=== PATIENT | male | born 1940 | race Hispanic/Latino ===

== ENCOUNTER 2018-05-24 07:45 | Emergency (ER) | payer MEDICARE ==
--- NOTE | 2018-05-24 08:09 | ED PDOC ---
Arrival/HPI - General Chief Complaint: Abdominal Pain Time Seen by Provider: 05/24/18 07:46 Historian: Patient - History of Present Illness Narrative History of Present Illness (Text): 05/24/18 08:08 77 year old male, with past medical history of CVA (7 years ago) and a questionable aneurysm, presents to the emergency department with complaints of intermittent abdominal pain since waking up yesterday morning. Patient reports a non-radiating epigastric discomfort described as heaviness. Patient reports associated mild diarrhea which stopped yesterday. Patient denies any urinary symptoms, fevers, chills, headache, dizziness, chest pain, shortness of breath, dyspnea on exertion, cough, nausea, vomiting, back pain, neck pain, or any other complaints. PMD: Dr. Domingo Time/Duration: 24 hours Symptom Onset: Gradual Symptom Course: Unchanged Activities at Onset: Light Context: Home Past Medical History - Provider Review Nursing Documentation Reviewed: Yes - Cardiac Hx Cardiac Disorders: Yes Hx Hypertension: Yes - Neurological Hx Neurological Disorder: Yes HX Cerebrovascular Accident: Yes - HEENT Hx HEENT Disorder: No - Renal Hx Renal Disorder: No - Endocrine/Metabolic Hx Endocrine Disorders: No - Hematological/Oncological Hx Blood Disorders: No - Integumentary Hx Dermatological Disorder: No - Musculoskeletal/Rheumatological Hx Musculoskeletal Disorders: No - Gastrointestinal Hx Gastrointestinal Disorders: No - Genitourinary/Gynecological Hx Genitourinary Disorders: No - Psychiatric Hx Psychophysiologic Disorder: No Hx Substance Use: No - Anesthesia Hx Anesthesia: No Family/Social History - Physician Review Nursing Documentation Reviewed: Yes Family/Social History: Unknown Family HX Smoking Status: Never Smoked Hx Alcohol Use: No Hx Substance Use: No Allergies/Home Meds Allergies/Adverse Reactions: Allergies No Known Allergies Allergy (Verified 05/24/18 11:06) Home Medications: Home Meds Medication Instructions Recorded Confirmed Enalapril/Hydrochlorothiazide 1 tab PO DAILY 05/24/18 05/24/18 [Enalapril-Hctz 10-25 mg Tablet] Simvastatin [Zocor] 1 tab PO DAILY 05/24/18 05/24/18 Tamsulosin [Flomax] 1 tab PO DAILY 05/24/18 05/24/18 amLODIPine [Norvasc] 1 tab PO DAILY 05/24/18 05/24/18 Review of Systems - Review of Systems Respiratory: absent: SOB Gastrointestinal: Abdominal Pain (heavy pain ), Diarrhea Genitourinary Male: absent: Urinary Output Changes Physical Exam - Physical Exam Narrative Physical Exam (Text): 05/24/18 08:20 Constitutional: No acute distress. Head: Normocephalic. Atraumatic. Eyes: PERRL. ENT: Dry mucous membranes. Neck: Supple. Cardiovascular: Regular rate. Chest: No tenderness. Respiratory: Clear to auscultation bilaterally. GI: Soft. Nontender. Nondistended. Back: No CVA tenderness. Musculoskeletal: No tenderness or swelling of extremities. Skin: No rash. Neurologic: Alert, no focal deficit. Vital Signs Reviewed: Yes Vital Signs Temp Pulse Resp BP Pulse Ox 05/24/18 07:53 98.1 F 74 16 135/63 97 Temperature: Afebrile Blood Pressure: Normal Pulse: Regular Respiratory Rate: Normal Appearance: Positive for: Well-Appearing, Non-Toxic, Comfortable Pain Distress: None Mental Status: Positive for: Alert and Oriented X 3 Medical Decision Making ED Course and Treatment: 05/24/18 08:22 Impression: 77 year old male presents to the emergency department complaining of abdominal pain since yesterday morning. Plan: -- Labs -- Chest X-ray -- Aspirin -- Reassess and disposition Prior Visits: Notes and results from previous visits were reviewed. Progress Notes: 05/24/18 08:57 Chest X-ray, reviewed by radiologist, shows no active pulmonary disease. Troponin negative in this pain of over 24 hours duration. Pepcid and Maalox administered and patient states pain gone. Instructed f/u with GI, instructed to return to ED for worsening pain, vomiting, fever, dyspnea, chest pain. - RAD Interpretation Geriatric Physical Therapist: Radiologist - Scribe Statement The provider has reviewed the documentation as recorded by the Scribe Irwin palm with Melissa All medical record entries made by the Scribe were at my direction and personally dictated by me. I have reviewed the chart and agree that the record accurately reflects my personal performance of the history, physical exam, medical decision making, and the department course for this patient. I have also personally directed, reviewed, and agree with the discharge instructions and disposition. Disposition/Present on Arrival - Present on Arrival Any Indicators Present on Arrival: No History of DVT/PE: No History of Uncontrolled Diabetes: No Urinary Catheter: No History of Decub. Ulcer: No History Surgical Site Infection Following: None - Disposition Have Diagnosis and Disposition been Completed?: Yes Diagnosis: Epigastric pain Disposition: HOME/ ROUTINE Disposition Time: 10:35 Patient Plan: Discharge Condition: STABLE Discharge Instructions (ExitCare): Gastritis Prescriptions: Aluminum Hydroxide/Magnesium [Maalox Plus 30 ml] 30 ml PO Q8H PRN #180 ml PRN Reason: Gi Distress Famotidine [Pepcid] 1 tab PO BID #14 tab Forms: [employer] (Frisian)
[2018-05-24 08:37] LABS: BASO # 0.01 K/mm3 (0.0-2.0); BASO % 0.1 % (0.0-3.0); EOS % 0.1 % (1.5-5.0); GRAN # 10.42 (1.4-6.5); GRAN % 88.8 % (50.0-68.0); HEMOGLOBIN 15.7 g/dL (14.0-18.0); LYMPH # 0.9 (1.2-3.4); LYMPH % 7.2 % (22.0-35.0); MEAN CELL VOLUME 85.2 fl (80.0-105.0); MEAN CORPUSCULAR HEMOGLOBIN 28.7 pg (25.0-35.0); MEAN CORPUSCULAR HGB CONC 33.7 g/dl (31.0-37.0); MEAN PLATELET VOLUME 9.1 fl (7.0-11.0); MONO # 0.4 (0.1-0.6); MONO % 3.8 % (1.0-6.0); RBC 5.47 10^6/uL (3.5-6.1); RED CELL DISTRIBUTION WIDTH 13.9 % (11.5-14.5); WHITE BLOOD COUNT 11.7 10^3/uL (4.5-11.0)
[2018-05-24 08:44] LABS: INR 1.03; PARTIAL THROMBOPLASTIN TIME 36.8 Seconds (25.1-36.5); PROTHROMBIN TIME 11.8 SECONDS (9.4-12.5)
--- NOTE | 2018-05-24 08:51 | RAD ---
Date of service: 05/24/2018 HISTORY: epigastric pain COMPARISON: No prior. FINDINGS: LUNGS: The lungs are well inflated and clear. PLEURA: No pleural effusions or pneumothorax. CARDIOVASCULAR: The heart is normal in size. There unfolding of the aorta. There are aortic atherosclerotic calcifications present. OSSEOUS STRUCTURES: Within normal limits for the patient's age. VISUALIZED UPPER ABDOMEN: Normal. OTHER FINDINGS: None. IMPRESSION: No active pulmonary disease.
[2018-05-24 08:55] LABS: ALB/GLOB RATIO 1.5 (1.1-1.8); ALBUMIN 4.7 g/dL (3.0-4.8); ALT/SGPT 31 U/L (7-56); AST/SGOT 31 U/L (17-59); BLOOD UREA NITROGEN 18 mg/dL (7-21); CALCIUM 9.5 mg/dL (8.4-10.5); GFR NON-AFRICAN AMERICAN > 60; LIPASE 115 U/L (23-300)
[2018-05-24 09:00] LABS: TROPONIN I < 0.01 ng/mL
[2018-05-24] MEDS ORDERED: Alum-Mag Hydrox-Simethicone Susp (30 mL) PO STA (09:33)
--- NOTE | 2018-05-24 11:17 | CARD ---
APPROVED REPORT Date of service: 05/24/2018 EKG Measurement Heart [id number] <Conclusion> Sinus rhythm with 1st degree AV block with premature atrial complexes Left axis deviation Right bundle branch block Inferior infarct, age undetermined Abnormal ECG
[2018-05-24 12:35] VITALS: BP 154/88; PULSE 68; RESP 18; TEMP 98.1; O2SAT 96; BMI 36.9
== END 2018-05-24 10:47 | disposition home or self-care (01) ==
LOC: ED 07:45
DX: R10.13 Epigastric pain (principal); I10 Essential (primary) hypertension; Z86.73 Personal history of transient ischemic attack (TIA), and cerebral infarction without residual deficits